=== PATIENT | female | born 1965 | race Caucasian/White ===

== ENCOUNTER 2023-11-03 20:24 | Emergency (ER) | payer BC, SELFPAY ==
[2023-11-03] VITALS (19 sets, daily range): BP systolic 160–175; BP diastolic 83–110; PULSE 70–90; RESP 14–26; TEMP 37.2; O2SAT 95–98; BMI 36.0
--- NOTE | 2023-11-03 20:35 | XR_ITS ---
[place] [id number] Patient Name: ROB LOERA MRN: [id number] date: 1965 Sex: F Assigned Patient Location: ER Current Patient Location: ER Accession/Order Number: [id number] Exam Date: 11/03/2023 21:15 Report Date: 11/03/2023 21:34 At the request of: HERMAN ROLDAN Procedure: XR chest 1V EXAMINATION: XR chest 1V, , 11/03/2023 9:15 PM EST INDICATION: chest pain HISTORY: Ordering Provider Reason for Exam: chest pain Technologist Note: Additional: COMPARISON: None. TECHNIQUE: Chest x-ray: One view. FINDINGS: No pneumothorax, pleural effusion or focal airspace consolidation. Heart is normal in size. Bony thorax is unremarkable. XR/XR chest 1V IMPRESSION: No acute cardiopulmonary process. Electronically authenticated by: KERI CHAU Date: 11/03/2023 21:34
--- NOTE | 2023-11-03 20:37 | ED_ITS ---
HPI - Abdominal Pain General Chief Complaint: Abdominal Pain Stated Complaint: Abdominal Pain Time Seen by Provider: 11/03/23 20:32 Source: patient Mode of arrival: walk-in Limitations: no limitations History of Present Illness HPI narrative: presents complaining of pain of her mid back that started yesterday. Today went to work as the pain resolved. Tonight has epigastric and chest pain associated with recurrent vomiting. no dyspnea. Denies past abdominal surgeries. No fever. No hematemesis MD elicited complaint: Reports abdominal pain Related Data Home Medications Medication Instructions Recorded Confirmed No Known Home Medications 11/03/23 11/03/23 Allergies Allergy/AdvReac Type Severity Reaction Status Date / Time morphine Allergy Nausea Verified 11/03/23 20:31 Review of Systems ROS Status of ROS 10 or more systems reviewed and unremark able except as noted in history and below Exam Constitutional Vital Signs, click to edit/add: Last Vital Signs Temp 98 F 11/04/23 06:24 Pulse 77 11/04/23 09:10 Resp 22 11/04/23 09:10 BP 160/73 H 11/04/23 08:00 Pulse Ox 96 11/04/23 06:24 O2 Del Method Room Air 11/03/23 20:32 Common normals: average body habitus, oriented x3, healthy appearing, alert and well nourished General appearance: in distress HENVT Common normals: normocephalic and head/scalp atraumatic Eye Common normals: PERRL, EOMs intact bilaterally and conjunctivae normal Respiratory Common normals: normal respiratory effort, no retractions, no use of accessory muscles and clear to auscultation bilaterally Cardio Common normals: regular rate, regular rhythm, S1 normal heart sound and S2 normal heart sound GI Common normals: Normal to inspection, nondistended, normoactive bowel sounds present and soft to palpation Other: mod and epigastric and midline abdominal tenderness Extremity Common normals: normal to inspection and full ROM Neuro Common normals: oriented x3, CN's II-XII intact bilaterally, moves all extremities and no focal motor deficits Psych Appearance: grossly normal Course Vital Signs Vital signs: Vital Signs Temperature 99.0 F 11/03/23 20:32 Pulse Rate 90 11/03/23 20:32 Respiratory Rate 20 11/03/23 20:32 Blood Pressure 160/110 H 11/03/23 20:32 Pulse Oximetry 98 12/04/23 20:32 Oxygen Delivery Method Room Air 11/03/23 20:32 Temperature 98 F 11/04/23 06:24 Pulse Rate 77 11/04/23 09:10 Respiratory Rate 22 11/04/23 09:10 Blood Pressure 160/73 H 11/04/23 08:00 Pulse Oximetry 96 11/04/23 06:24 Oxygen Delivery Method Room Air 11/03/23 20:32 MDM - Abdominal Pain MDM Narrative Medical decision making narrative: patient presents with complaint of back pain and abdominal pain. Has epigastric and midline abdominal tenderness. No fever. CT returned with finding of 4.7 cm infrarenal aortic aneurysm with calcified and noncalcified plague. also mild common bile duct dilation up to 10mm without visualized obstructing lesion. patient re examined and remains tender and therefore gallbladder ultrasound ordered as the cause of her pain remained unclear. . A second radiologist read the ultrasound which again demonstrated dilated bile duct but no definite cholecystitis. He also looked at the CT abdomen scan for earlier and states there is inflammation of her Aorta and that she has acute Aortitis. Patient does not follow with a PCP. Takes no medication. Is a daily smoker. Vancomycin, Flagyl and solumedrol ordered. Several hospitals called in [place] and also [facility] and no beds available. [facility] called and waiting for call back. Discussed with vascular surgeon Dr Palafox at [facility] and patient is accepted in transfer Lab Data Labs: Lab Results 11/03/23 11/03/23 11/04/23 Range/Units 20:05 20:55 01:18 WBC 14.8 H (4.0-11.0) 10^3/uL RBC 4.79 (4.20-5.40) 10^6/uL Hgb 14.3 (12.0-16.0) g/dL Hct 44.0 (36.0-48.0) % MCV 91.9 (81.0-99.0) fL MCH 29.9 (26.7-34.0) pg MCHC 32.5 (29.9-35.2) g/dL RDW 13.8 (11.0-15.0) % Plt Count 272 (150-450) 10^3/uL MPV 10.5 (9.5-13.5) fL Neut % (Auto) 77.4 H (43.0-75.0) % Lymph % (Auto) 15.0 L (20.5-60.0) % [place] % (Auto) 4.9 (1.7-12.0) % Eos % (Auto) 1.7 (0.9-7.0) % Baso % (Auto) 0.7 (0.2-2.0) % Neut # (Auto) 11.5 H (1.4-6.5) 10^3/uL Lymph # (Auto) 2.2 (1.2-3.8) 10^3/uL [place] # (Auto) 0.7 (0.3-0.8) 10^3/uL Eos # (Auto) 0.3 (0.0-0.7) 10^3/uL Baso # (Auto) 0.1 (0.0-0.1) 10^3/uL Abs Immat Gran (auto) 0.05 H (0.00-0.03) 10^3/uL Imm/Tot Granulo (auto) 0.3 (0.0-0.5) % ESR 84 H (<=30) mm/hr D-Dimer 3.50 H* (<=0.59) mg/L FEU Sodium 139 (136-145) mmol/L Potassium 4.0 (3.5-5.1) mmol/L Chloride 103 (98-107) mmol/L Carbon Dioxide 25.6 (21.0-32.0) mmol/L Anion Gap 14.4 BUN 18.0 (7.0-18.0) mg/dL Creatinine 0.74 (0.55-1.02) mg/dL Est GFR ( Amer) >60 (>=60) Est GFR (Non-Af Amer) >60 (>=60) BUN/Creatinine Ratio 24.3 Glucose 127 H (74-106) mg/dL Lactate 1.0 (0.4-2.0) mmol/L Calcium 9.2 (8.5-10.1) mg/dL Total Bilirubin 0.5 (0.2-1.0) mg/dL AST 17 (15-37) U/L ALT 13 L (14-59) U/L Alkaline Phosphatase 83 (46-116) U/L Troponin I High Sens 12.1 (4.0-51.3) pg/mL C-Reactive Protein 0.73 H (<=0.30) mg/dL Total Protein 8.2 (6.4-8.2) g/dL Albumin 3.9 (3.4-5.0) g/dL Globulin 4.3 g/dL Albumin/Globulin Ratio 0.9 Lipase 52.0 (16.0-77.0) U/L Urine Color Lt. yellow (YELLOW) Urine Clarity Clear (CLEAR) Urine pH 6.0 (5.0-9.0) Ur Specific [place] 1.010 (1.005-1.025) Urine Protein Negative (NEG/TRACE) mg/dL Urine Glucose (UA) Negative (NEGATIVE) mg/dL Urine Ketones Negative (NEGATIVE) mg/dL Urine Occult Blood Trace-i (NEGATIVE) Urine Nitrite Negative (NEGATIVE) Urine Bilirubin Negative (NEGATIVE) Urine Urobilinogen 0.2 (0.2-1.0) EU/dL Ur Leukocyte Esterase Negative (NEGATIVE) Urine RBC 0-2 (0-2) #/HPF Urine WBC None seen (NONE SEEN) #/HPF Ur Squamous Epith Cells None seen (NONE/RARE) #/LPF Urine Crystals None seen (None Seen) #/HPF Urine Bacteria None seen (NONE SEEN) #/HPF Urine Casts None seen (NONE SEEN) #/LPF Urine Mucus None seen (NONE SEEN) Critical Care Time Critical Care Time Critical Care Time: Yes Total Critical Care Time: 45 Attestation: patient diagnosed with acute aortitis Discharge Plan Discharge Chief Complaint: Abdominal Pain Clinical Impression: Abdominal aortic aneurysm (AAA), Aortitis Patient Disposition: [facility] Time of Disposition Decision: 08:14 Discharge Location: [facility] Condition: Fair Mode of Transportation: EMS Discharge Date/Time: 11/04/23 09:30
--- NOTE | 2023-11-03 20:40 | ECG_ITS ---
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
[2023-11-03] MEDS: ONDANSETRON PF 4 MG/2 ML VIAL IV (21:00)
[2023-11-03] MEDS: 0.9 % SODIUM CHLORIDE 1,000 ML 100 ML IV (21:00)
[2023-11-03] MEDS: FENTANYL CITRATE/PF 100 MCG/2 ML VIAL 50 MCG IV (21:00)
[2023-11-03 21:03] LABS: Basophils Absolute Auto 0.1 10^3/uL (0.0-0.1); Basophils Percent Auto 0.7 % (0.2-2.0); Eosinophils Absolute Auto 0.3 10^3/uL (0.0-0.7); Eosinophils Percent Auto 1.7 % (0.9-7.0); Hemoglobin 14.3 g/dL (12.0-16.0); Immature Granulocytes Abs Auto 0.05 10^3/uL (0.00-0.03); Immature Granulocytes Pct Auto 0.3 % (0.0-0.5); Lymphocytes Absolute Auto 2.2 10^3/uL (1.2-3.8); Mean Corpuscular HGB Conc 32.5 g/dL (29.9-35.2); Mean Corpuscular Hemoglobin 29.9 pg (26.7-34.0); Mean Corpuscular Volume 91.9 fL (81.0-99.0); Mean Platelet Volume 10.5 fL (9.5-13.5); Monocytes Absolute Auto 0.7 10^3/uL (0.3-0.8); Monocytes Percent Auto 4.9 % (1.7-12.0); Neutrophils Absolute Auto 11.5 10^3/uL (1.4-6.5); Neutrophils Percent Auto 77.4 % (43.0-75.0); Platelet Count 272 10^3/uL (150-450); Red Blood Count 4.79 10^6/uL (4.20-5.40); Red Cell Distribution Width 13.8 % (11.0-15.0); White Blood Count 14.8 10^3/uL (4.0-11.0)
[2023-11-03 21:16] LABS: Anion Gap 14.4
[2023-11-03 21:19] LABS: Alanine Aminotransferase 13 U/L (14-59); Albumin Globulin Ratio 0.9; Albumin Level 3.9 g/dL (3.4-5.0); Alkaline Phosphatase 83 U/L (46-116); Aspartate Amino Transferase 17 U/L (15-37); BUN Creatinine Ratio 24.3; Bilirubin Total 0.5 mg/dL (0.2-1.0); Calcium 9.2 mg/dL (8.5-10.1); Carbon Dioxide 25.6 mmol/L (21.0-32.0); Chloride 103 mmol/L (98-107); Estimated GFR (African America >60 (>=60); Estimated GFR (Non-African Ame >60 (>=60); Globulin 4.3 g/dL; Glucose 127 mg/dL (74-106); Sodium 139 mmol/L (136-145); Total Protein 8.2 g/dL (6.4-8.2); Troponin I High Sensitivity 12.1 pg/mL (4.0-51.3)
--- NOTE | 2023-11-03 21:25 | CT_ITS ---
[address] [address] Patient Name: ROB LOERA MRN: [id number] date: 1965 Sex: F Assigned Patient Location: ER Current Patient Location: .[facility] Accession/Order Number: [id number] Exam Date: 11/03/2023 21:40 Report Date: 11/03/2023 22:57 At the request of: HERMAN ROLDAN Procedure: CT angio chest EXAMINATION: CHEST CT WITH CONTRAST (PULMONARY EMBOLISM PROTOCOL) and CT ABDOMEN AND PELVIS WITH IV CONTRAST CLINICAL HISTORY: Acute chest and epigastric pain, with nausea and vomiting TECHNIQUE: Spiral CT acquisition of the chest from the thoracic inlet to the upper abdomen following IV contrast. Maximum intensity projection (MIP)reconstructions were performed. CT of the abdomen and pelvis was performed using standard technique, scanning from just above the dome of the diaphragm to the symphysis pubis. Contrast: IV: 100 ml of Omnipaque 350 COMPARISON: Chest radiograph 11/03/2023 RESULT: Limitations: None. Chest: Lines, tubes, and devices: None. Lung parenchyma and pleura: No consolidation. No suspicious pulmonary nodule. No pleural effusion. Central airways are patent. Bibasilar atelectasis. Thoracic inlet, heart, and mediastinum: No lymphadenopathy in the axillary, mediastinal, or hilar regions. The thoracic aorta and main pulmonary artery are normal in caliber. Mild calcified and noncalcified plaque thoracic aorta. The cardiac chambers are normal in size. Mild coronary artery atherosclerotic calcifications are noted, although the study is not optimized for coronary assessment. No pericardial effusion or thickening. 11 mm right thyroid lobe low-attenuation nodule. Bones/Soft Tissues: No significant finding. Abdomen / Pelvis: Liver: No mass. Biliary: 10 mm, bile duct dilation. No visualized obstructing lesion. Gallbladder is unremarkable. Spleen: No mass. No splenomegaly. Pancreas: No mass or duct dilation. Adrenals: Left adrenal thickening. Right adrenal gland is unremarkable. Kidneys: No mass, calculus or hydronephrosis. GI tract: No dilation or wall thickening. Lymph nodes: No abdominal or pelvic lymphadenopathy. Mesentery/Peritoneum: No ascites or mass. Retroperitoneum: No mass. Vasculature: The celiac axis and SMA are patent. The portal vein and branches, splenic vein, SMV, and hepatic veins are patent. Dense calcified and noncalcified plaque throughout the abdominal aorta and iliac arteries and a 4.7 cm infrarenal aortic aneurysm. Pelvis: No mass, ascites or fluid collection. Urinary bladder is unremarkable. Soft tissues and bones:No acute abnormality. CT/CT angio chest IMPRESSION: Chest: 1. No evidence of pulmonary embolism or acute findings in the thorax. 2. 11 mm right thyroid low-attenuation nodule. Recommend further evaluation with nonemergent dedicated thyroid ultrasound. Abdomen and pelvis: 1. Mild common bile duct dilation up to 10 mm, without a visualized obstructing lesion or calculus. Findings are similar secondary to choledocholithiasis and maybe further evaluated with MRCP. 2. 4.7 cm infrarenal aortic aneurysm with calcified and noncalcified plaque. Recommend vascular surgery consult for further evaluation. Electronically authenticated by: CHLOÉ HEATON Date: 11/03/2023 22:57
--- NOTE | 2023-11-03 21:25 | CT_ITS ---
[address] [address] Patient Name: ROB LOERA MRN: [id number] date: 1965 Sex: F Assigned Patient Location: ER Current Patient Location: .[facility] Accession/Order Number: [id number] Exam Date: 11/03/2023 21:40 Report Date: 11/03/2023 22:57 At the request of: HERMAN ROLDAN Procedure: CT abdomen pelvis w con EXAMINATION: CHEST CT WITH CONTRAST (PULMONARY EMBOLISM PROTOCOL) and CT ABDOMEN AND PELVIS WITH IV CONTRAST CLINICAL HISTORY: Acute chest and epigastric pain, with nausea and vomiting TECHNIQUE: Spiral CT acquisition of the chest from the thoracic inlet to the upper abdomen following IV contrast. Maximum intensity projection (MIP)reconstructions were performed. CT of the abdomen and pelvis was performed using standard technique, scanning from just above the dome of the diaphragm to the symphysis pubis. Contrast: IV: 100 ml of Omnipaque 350 COMPARISON: Chest radiograph 11/03/2023 RESULT: Limitations: None. Chest: Lines, tubes, and devices: None. Lung parenchyma and pleura: No consolidation. No suspicious pulmonary nodule. No pleural effusion. Central airways are patent. Bibasilar atelectasis. Thoracic inlet, heart, and mediastinum: No lymphadenopathy in the axillary, mediastinal, or hilar regions. The thoracic aorta and main pulmonary artery are normal in caliber. Mild calcified and noncalcified plaque thoracic aorta. The cardiac chambers are normal in size. Mild coronary artery atherosclerotic calcifications are noted, although the study is not optimized for coronary assessment. No pericardial effusion or thickening. 11 mm right thyroid lobe low-attenuation nodule. Bones/Soft Tissues: No significant finding. Abdomen / Pelvis: Liver: No mass. Biliary: 10 mm, bile duct dilation. No visualized obstructing lesion. Gallbladder is unremarkable. Spleen: No mass. No splenomegaly. Pancreas: No mass or duct dilation. Adrenals: Left adrenal thickening. Right adrenal gland is unremarkable. Kidneys: No mass, calculus or hydronephrosis. GI tract: No dilation or wall thickening. Lymph nodes: No abdominal or pelvic lymphadenopathy. Mesentery/Peritoneum: No ascites or mass. Retroperitoneum: No mass. Vasculature: The celiac axis and SMA are patent. The portal vein and branches, splenic vein, SMV, and hepatic veins are patent. Dense calcified and noncalcified plaque throughout the abdominal aorta and iliac arteries and a 4.7 cm infrarenal aortic aneurysm. Pelvis: No mass, ascites or fluid collection. Urinary bladder is unremarkable. Soft tissues and bones:No acute abnormality. CT/CT abdomen pelvis w con IMPRESSION: Chest: 1. No evidence of pulmonary embolism or acute findings in the thorax. 2. 11 mm right thyroid low-attenuation nodule. Recommend further evaluation with nonemergent dedicated thyroid ultrasound. Abdomen and pelvis: 1. Mild common bile duct dilation up to 10 mm, without a visualized obstructing lesion or calculus. Findings are similar secondary to choledocholithiasis and maybe further evaluated with MRCP. 2. 4.7 cm infrarenal aortic aneurysm with calcified and noncalcified plaque. Recommend vascular surgery consult for further evaluation. Electronically authenticated by: CHLOÉ HEATON Date: 11/03/2023 22:57
[2023-11-03] MEDS: HYDROMORPHONE HCL 1 MG/ML CARTRIDGE IVP (22:04)
--- NOTE | 2023-11-03 23:12 | US_ITS ---
The [address] [address] Patient Name: ROB LOERA MRN: [id number] date: 1965 Sex: F Assigned Patient Location: ER Current Patient Location: ER Accession/Order Number: [id number] Exam Date: 11/03/2023 23:45 Report Date: 11/04/2023 00:44 At the request of: HERMAN ROLDAN Procedure: US right upper quadrant EXAM: US right upper quadrant HISTORY: cholecystitis COMPARISON: Correlation is made with CT abdomen and pelvis examination of the same date. TECHNIQUE: Real-time ultrasonography of the right upper quadrant was performed using Color Doppler and reviewed. FINDINGS: The liver is normal in size and echogenicity with no focal intrahepatic lesions. The gallbladder is distended measuring up to 13.3 cm in length. There is biliary prominence with the common bile duct measuring up to 1.1 cm. The portal vein is patent and demonstrates normal hepatopetal blood flow. The imaged hepatic veins are patent. The right kidney is normal in size and cortical echogenicity, without evidence of focal mass, calcification, or hydronephrosis. The right kidney measures 11.5 cm in length. The pancreatic duct is dilated measuring up to 0.5 cm. US/US right upper quadrant IMPRESSION: 1. Gallbladder distention without cholelithiasis or gallbladder wall thickening. There was a negative reported sonographic Cruz's sign. 2. The common bile duct is dilated measuring up to 1.1 cm. If there is concern for choledocholithiasis, further evaluation with MRCP/ERCP is recommended. 3. Dilated pancreatic duct measuring up to 0.5 cm. This could be further evaluated with a nonemergent outpatient contrast-enhanced MRI examination as clinically indicated. Electronically authenticated by: Roberto QUINTERO Date: 11/04/2023 00:44
[2023-11-03] MEDS: HYDROMORPHONE HCL 1 MG/ML CARTRIDGE 0.5 MG IVP (23:29)
[2023-11-04] VITALS (66 sets, daily range): BP systolic 131–172; BP diastolic 46–98; PULSE 63–91; RESP 12–23; TEMP 36.6; O2SAT 91–98
[2023-11-04] MEDS: METRONIDAZOLE/SODIUM CHLORIDE 500 MG/100 ML PREMIX 100 MG IV (01:11)
[2023-11-04] MEDS: METHYLPREDNISOLONE SOD SUCC PF 125 MG/2 ML VIAL IVP (01:12)
[2023-11-04 01:20] LABS: C Reactive Protein 0.73 mg/dL (<=0.30); Erythrocyte Sedimentation Rate 84 mm/hr (<=30)
[2023-11-04] MEDS: LABETALOL HCL 20 MG/4 ML SYRINGE 10 MG IVP (01:44)
[2023-11-04 01:52] LABS: Bilirubin Urine NEGATIVE (NEGATIVE); Blood Urine TRACE-I (NEGATIVE); Clarity Urine CLEAR (CLEAR); Color Urine LT. YELLOW (YELLOW); Glucose Urine UA NEGATIVE (NEGATIVE); Ketones Urine NEGATIVE (NEGATIVE); Leukocyte Esterase Urine NEGATIVE (NEGATIVE); Nitrite Urine NEGATIVE (NEGATIVE); Protein Urine NEGATIVE (NEG/TRACE); Urobilinogen Urine 0.2 EU/dL (0.2-1.0)
[2023-11-04 01:57] LABS: Bacteria Urine NONE SEEN #/HPF (NONE SEEN); Cast Seen? NONE SEEN #/LPF (NONE SEEN); Crystals Seen? None Seen #/HPF (None Seen); Mucus Urine NONE SEEN (NONE SEEN); RBC Urine 0-2 #/HPF (0-2); Squamous Epithelial Cell Urine NONE SEEN #/LPF (NONE/RARE); Urine Microscopic Indicated YES; WBC Urine NONE SEEN #/HPF (NONE SEEN)
[2023-11-04] MEDS: VANCOMYCIN HCL 1,500 MG in 0.9 % SODIUM CHLORIDE 500 ML 250 MG IV (02:16)
== END 2023-11-04 09:30 | disposition short-term general hospital (02) ==
PROVIDERS: Internal Medicine; Emergency Provider Emergency Medicine
DX: I77.6 Arteritis, unspecified (principal); I71.43 Infrarenal abdominal aortic aneurysm, without rupture; R11.10 Vomiting, unspecified; F17.200 Nicotine dependence, unspecified, uncomplicated
CPT/HCPCS: 36415; 71045; 71275; 74177; 76705; 80053; 81001; 83605; 83690; 84484; 85025; 85378; 85652; 86140; 93005; 96365; 96366; 96367; 96375; 96376; 99285; J1170; J2930; J3370; Q9967

== ENCOUNTER 2024-12-28 09:53 | Emergency (ER) | payer OTHER, SELFPAY ==
[2024-12-28 09:58] VITALS: BP 126/72; PULSE 79; TEMP 36.6; O2SAT 98; BMI 37.9
--- NOTE | 2024-12-28 10:08 | XR_ITS ---
The [place] [address] Patient Name: ROB LOERA MRN: [id number] date: 1965 Sex: F Assigned Patient Location: ER Current Patient Location: ER Accession/Order Number: [id number] Exam Date: 12/28/2024 10:35 Report Date: 12/28/2024 10:50 At the request of: HORACIO QUINTERO Procedure: XR lumbar spine 2-3V EXAMINATION: XR lumbar spine 2-3V HISTORY: Atraumatic pain COMPARISON: No relevant comparison available. FINDINGS: BONES: Rotatory levocurvature centered at L3. Moderate spondylosis and facet osteoarthropathy DISC SPACES: Normal. No significant disc height narrowing, subluxation, or endplate abnormality. PARASPINOUS: Negative. No paraspinous abnormality is seen. OTHER: Vascular calcifications with abdominal aortic aneurysm extending off the field of view XR/XR lumbar spine 2-3V IMPRESSION: Abdominal aortic aneurysm. Moderate to severe degenerative change Electronically authenticated by: ED KNOX Date: 12/28/2024 10:50
--- NOTE | 2024-12-28 10:08 | US_ITS ---
[place] [id number] Patient Name: ROB LOERA MRN: [id number] date: 1965 Sex: F Assigned Patient Location: ER Current Patient Location: ER Accession/Order Number: [id number] Exam Date: 12/28/2024 10:09 Report Date: 12/28/2024 11:04 At the request of: HORACIO QUINTERO Procedure: US venous doppler LE LT EXAM: US venous doppler LE LT HISTORY: Pain, history of DVT COMPARISON: None. TECHNIQUE: Grayscale, color and Doppler FINDINGS: Region: Left leg Thrombus: None Flow: Normal Augmentation: Normal Compressibility: Normal US/US venous doppler LE LT IMPRESSION: No deep or superficial vein thrombus identified in the left leg Electronically authenticated by: ED KNOX Date: 12/28/2024 11:04
--- NOTE | 2024-12-28 10:09 | ED.GENADUL1 ---
HPI HPI - General Adult General Chief complaint: Extremity Problem, Nontraumatic Stated complaint: LOWER EXTREMITY SWELLING/PAIN Time Seen by Provider: 12/28/24 09:57 Source: patient Mode of arrival: walk-in History of Present Illness HPI narrative: 59-year-old female presents to the emergency department for pain in her left leg which she has had for months. Seems to have gotten worse in the last few weeks and she was sent here by her family doctor who saw her today. It is her entire leg and she has lower back pain as well without any injury. She has a very remote history of DVT and is no longer on blood thinners. No fever or abdominal pain. 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 No chest or abdominal pain. Related Data Home Medications ?Medication ?Instructions ?Recorded ?Confirmed albuterol sulfate 90 mcg/actuation inhalation 12/28/24 aerosol inhaler budesonide-formoterol HFA 160 inhalation 12/28/24 mcg-4.5 mcg/actuation aerosol inhaler bupropion HCl 150 mg 24 hr tablet, mg PO 12/28/24 extended release Previous Rx's ?Medication ?Instructions ?Recorded acetaminophen 300 mg-codeine 30 mg 1 tab PO Q6H PRN pain 5 days #20 12/28/24 tablet tabs prednisone 10 mg tablet See Rx Instructions .Route 12/28/24 .COMPLEX #30 tabs Allergies Allergy/AdvReac Type Severity Reaction Status Date / Time Iodinated Contrast Media Allergy Unknown Difficulty Verified 12/28/24 09:58 Breathing morphine Allergy Nausea Verified 12/28/24 09:58 Opioid HPI Opioid Management Most Recent Opioid Data: Last Pain Scale 6 12/28/24 10:21 12/28/24 Review of Systems ROS Narrative A ten point review of systems is negative except as noted above. PFSH PFSH Social History Little interest or pleasure in doing things: not at all Feeling down, depressed, or hopeless: not at all Exam Narrative Exam Narrative: Nurses note and vital signs reviewed and patient is not hypoxic. General: The patient appears well and in no apparent distress. Skin: Warm, dry, no pallor noted. There is no rash noted. Head: Normocephalic, atraumatic Eye: Normal conjunctiva, no drainage Ears, Nose, Mouth, and Throat: oral mucosa is moist. Nares patent. Cardiovascular: Regular Rate and Rhythm Respiratory: Patient is in no distress, no accessory muscle use, lungs are clear to auscultation, no wheezing, rales or rhonchi Back: non-tender, no bruise rash or abrasion. GI: Soft and nontender Musculoskeletal: Her legs are examined. Dorsalis pedis pulses are 2+ bilaterally and capillary refill is brisk. No calf swelling but she has some diffuse tenderness in her leg on palpation Neurological: A&O, normal speech Psychiatric: Cooperative Constitutional Vital Signs, click to edit/add: Last Vital Signs Temp 97.8 F 12/28/24 09:58 Pulse 79 12/28/24 09:58 Resp 18 12/28/24 09:58 BP 126/72 12/28/24 09:58 Pulse Ox 98 12/28/24 09:58 O2 Del Method Room Air 12/28/24 09:58 Course Vital Signs Vital signs: Vital Signs Temperature 97.8 F 12/28/24 09:58 Pulse Rate 79 12/28/24 09:58 Respiratory Rate 18 12/28/24 09:58 Blood Pressure 126/72 12/28/24 09:58 Pulse Oximetry 98 12/28/24 09:58 Oxygen Delivery Method Room Air 12/28/24 09:58 Temperature 97.8 F 12/28/24 09:58 Pulse Rate 79 12/28/24 09:58 Respiratory Rate 18 12/28/24 09:58 Blood Pressure 126/72 12/28/24 09:58 Pulse Oximetry 98 12/28/24 09:58 Oxygen Delivery Method Room Air 12/28/24 09:58 Medical Decision Making MDM Narrative Medical decision making narrative: No evidence of DVT. I have no clinical suspicion of arterial occlusion. She has a normal exam. Urinalysis also negative. She will be prescribed pain medication and prednisone and follow-up with her doctor. Treatment diagnosis and follow-up were discussed with the patient. Differential Diagnosis Differential Diagnosis: DVT, sciatica Lab Data Lab results reviewed: Yes I reviewed the patient's lab results Labs: Lab Results 12/28/24 12/28/24 Range/Units 10:14 10:16 WBC 9.4 (4.0-11.0) 10^3/uL RBC 4.71 (4.20-5.40) 10^6/uL Hgb 14.1 (12.0-16.0) g/dL Hct 44.0 (36.0-48.0) % MCV 93.4 (81.0-99.0) fL MCH 29.9 (26.7-34.0) pg MCHC 32.0 (29.9-35.2) g/dL RDW 13.4 (11.0-15.0) % Plt Count 263 (150-450) 10^3/uL MPV 10.7 (9.5-13.5) fL Neut % (Auto) 51.7 (43.0-75.0) % Lymph % (Auto) 32.7 (20.5-60.0) % [place] % (Auto) 7.0 (1.7-12.0) % Eos % (Auto) 7.1 H (0.9-7.0) % Baso % (Auto) 1.2 (0.2-2.0) % Neut # (Auto) 4.9 (1.4-6.5) 10^3/uL Lymph # (Auto) 3.1 (1.2-3.8) 10^3/uL [place] # (Auto) 0.7 (0.3-0.8) 10^3/uL Eos # (Auto) 0.7 (0.0-0.7) 10^3/uL Baso # (Auto) 0.1 (0.0-0.1) 10^3/uL Abs Immat Gran (auto) 0.03 (0.00-0.03) 10^3/uL Imm/Tot Granulo (auto) 0.3 (0.0-0.5) % Sodium 140 (136-145) mmol/L Potassium 4.4 (3.5-5.1) mmol/L Chloride 106 (98-107) mmol/L Carbon Dioxide 27.3 (21.0-32.0) mmol/L Anion Gap 11.1 BUN 14.0 (7.0-18.0) mg/dL Creatinine 0.75 (0.55-1.02) mg/dL Est GFR ( Amer) >60 (>=60 mL/min/1.73m^2) Est GFR (Non-Af Amer) >60 (>=60 mL/min/1.73m^2) BUN/Creatinine Ratio 18.7 Glucose 93 (74-106) mg/dL Calcium 8.9 (8.5-10.1) mg/dL Urine Color Yellow (YELLOW) Urine Clarity Clear (CLEAR) Urine pH 6.0 (5.0-9.0) Ur Specific [place] 1.020 (1.005-1.025) Urine Protein Negative (NEG/TRACE) mg/dL Urine Glucose (UA) Negative (NEGATIVE) mg/dL Urine Ketones Negative (NEGATIVE) mg/dL Urine Occult Blood Negative (NEGATIVE) Urine Nitrite Negative (NEGATIVE) Urine Bilirubin Negative (NEGATIVE) Urine Urobilinogen 0.2 (0.2-1.0) EU/dL Ur Leukocyte Esterase Negative (NEGATIVE) Urine RBC 0-2 (0-2) #/HPF Urine WBC None seen (NONE SEEN) #/HPF Ur Squamous Epith Cells Moderate A (NONE/RARE) #/LPF Urine Crystals None seen (None Seen) #/HPF Urine Bacteria Trace A (NONE SEEN) #/HPF Urine Casts None seen (NONE SEEN) #/LPF Urine Mucus None seen (NONE SEEN) Ur Culture Indicated? No Imaging Data Lumbar x-ray: Radiologist's impression: ITS Impressions Lumbar Spine X-Ray 12/28/24 10:08 IMPRESSION: Abdominal aortic aneurysm. Moderate to severe degenerative change Electronically authenticated by: ED KNOX Date: 12/28/2024 10:50 Venous Doppler Study 12/28/24 10:08 IMPRESSION: No deep or superficial vein thrombus identified in the left leg Electronically authenticated by: ED K[place]X Date: 12/28/2024 11:04 Discharge Plan Discharge Chief Complaint: Extremity Problem, Nontraumatic Clinical Impression: Sciatica Patient Disposition: Home, Self-Care Time of Disposition Decision: 11:13 Condition: Good Mode of Transportation: Private Vehicle Prescriptions / Home Meds: New acetaminophen-codeine 300-30 mg tablet 1 tab PO Q6H PRN (Reason: pain) 5 Days Qty: 20 0RF prednisone 10 mg tablet See Rx Instructions .ROUTE .COMPLEX Qty: 30 0RF Rx Instructions: 4 by mouth daily for three days then 3 by mouth daily for three days then 2 by mouth daily for three days then 1 by mouth daily for three days No Action albuterol sulfate 90 mcg/actuation HFA aerosol inhaler INHALATION bupropion HCl 150 mg tablet extended release 24 hr PO budesonide-formoterol 160-4.5 mcg/actuation HFA aerosol inhaler INHALATION Print Language: [place] Instructions: Sciatica (ED) Referrals: ERIKA BROOKE [Primary Care Provider] - 1 week
[2024-12-28 10:29] LABS: Bilirubin Urine NEGATIVE (NEGATIVE); Blood Urine NEGATIVE (NEGATIVE); Clarity Urine CLEAR (CLEAR); Color Urine YELLOW (YELLOW); Glucose Urine UA NEGATIVE (NEGATIVE); Ketones Urine NEGATIVE (NEGATIVE); Leukocyte Esterase Urine NEGATIVE (NEGATIVE); Nitrite Urine NEGATIVE (NEGATIVE); Protein Urine NEGATIVE (NEG/TRACE); Urobilinogen Urine 0.2 EU/dL (0.2-1.0)
[2024-12-28 10:30] LABS: Basophils Absolute Auto 0.1 10^3/uL (0.0-0.1); Basophils Percent Auto 1.2 % (0.2-2.0); Eosinophils Absolute Auto 0.7 10^3/uL (0.0-0.7); Eosinophils Percent Auto 7.1 % (0.9-7.0); Hemoglobin 14.1 g/dL (12.0-16.0); Immature Granulocytes Abs Auto 0.03 10^3/uL (0.00-0.03); Immature Granulocytes Pct Auto 0.3 % (0.0-0.5); Lymphocytes Absolute Auto 3.1 10^3/uL (1.2-3.8); Lymphocytes Percent Auto 32.7 % (20.5-60.0); Mean Corpuscular Hemoglobin 29.9 pg (26.7-34.0); Mean Corpuscular Volume 93.4 fL (81.0-99.0); Mean Platelet Volume 10.7 fL (9.5-13.5); Monocytes Absolute Auto 0.7 10^3/uL (0.3-0.8); Neutrophils Absolute Auto 4.9 10^3/uL (1.4-6.5); Neutrophils Percent Auto 51.7 % (43.0-75.0); Platelet Count 263 10^3/uL (150-450); Red Blood Count 4.71 10^6/uL (4.20-5.40); Red Cell Distribution Width 13.4 % (11.0-15.0); White Blood Count 9.4 10^3/uL (4.0-11.0)
[2024-12-28 10:36] LABS: Bacteria Urine TRACE #/HPF (NONE SEEN); Mucus Urine NONE SEEN (NONE SEEN); RBC Urine 0-2 #/HPF (0-2); WBC Urine NONE SEEN #/HPF (NONE SEEN)
[2024-12-28 10:37] LABS: Cast Seen? NONE SEEN #/LPF (NONE SEEN); Crystals Seen? None Seen #/HPF (None Seen); Squamous Epithelial Cell Urine MODERATE #/LPF (NONE/RARE); Urine Culture Indicated NO
[2024-12-28 10:40] LABS: Anion Gap 11.1; BUN Creatinine Ratio 18.7; Calcium 8.9 mg/dL (8.5-10.1); Carbon Dioxide 27.3 mmol/L (21.0-32.0); Chloride 106 mmol/L (98-107); Estimated GFR (African America >60 (>=60 mL/min/1.73m^2); Estimated GFR (Non-African Ame >60 (>=60 mL/min/1.73m^2); Glucose 93 mg/dL (74-106); Potassium 4.4 mmol/L (3.5-5.1); Sodium 140 mmol/L (136-145)
--- NOTE | 2024-12-28 10:42 | PC.NURSE ---
pt back from imaging at this time via stretcher. US at bedside at this time. pt denies current needs prior to US. at bedside.
[2024-12-28 11:30] VITALS: BP 130/77; PULSE 74; O2SAT 98
== END 2024-12-28 11:34 | disposition home or self-care (01) ==
PROVIDERS: Emergency Provider Emergency Medicine; PCP Family Medicine
DX: M54.32 Sciatica, left side (principal); Z86.718 Personal history of other venous thrombosis and embolism; I71.40 Abdominal aortic aneurysm, without rupture, unspecified
CPT/HCPCS: 36415; 72100; 80048; 81001; 85025; 93971; 99285

== ENCOUNTER 2025-01-14 14:38 | Outpatient (RCR) | payer OTHER, SELFPAY | END 2025-01-25 08:24 | disposition home or self-care (01) | LOC: PT 14:38 | PROVIDERS: PCP Family Medicine; Visit Provider Family Medicine | DX: M79.605 Pain in left leg (principal); M25.552 Pain in left hip | CPT/HCPCS: 97014; 97035; 97110; 97140; 97161 ==